=== PATIENT | male | born 2000 | race Caucasian/White ===

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

== ENCOUNTER 2022-05-31 15:45 | Emergency (ER) | payer OTHER | END 2022-05-31 20:24 | disposition home or self-care (01) | LOC: ER1 15:45 | DX: N50.3 Cyst of epididymis (principal) | CPT/HCPCS: 76870; 81001; 87086; 99284 ==